=== PATIENT | female | born 1995 | race Caucasian/White ===

== ENCOUNTER → 2016-08-09 | Outpatient (CLI) | payer OTHER ==
[~2016-08-09] MED LIST: EPP3/2 IM; FLUT27.5 NAE; LEVO-371 PO; MONT1TAB3 PO; [UNRECOGNIZED DRUG - REMARK] INJ
--- NOTE | 2016-08-09 17:02 | EEG Procedure Note ---
EEG Procedure Note Date of Service Aug 09, 2016. Start / End Times Start Time: 10:40 AM End Time: 11:01 AM Referring Physician KERI Syed History This is a 21-year-old female with a syncopal event. EEG for further evaluation of possible seizure etiology. Home medications: No reported sedating or antiepileptic medications. Home Medication List Scheduled Epinephrine (Epipen), 0.3 MG IM UD Fluticasone Furoate (Veramyst), 2 SPRY DERRICK DAILY Levocetirizine Dihydrochloride (Xyzal), 1 TAB PO DAILY [serum allergy], 1 DOSE INJ q 2 weeks Miscellaneous Medications Montelukast Sodium (Singulair), 10 MG PO Description This is a 21 electrode EEG with a single channel dedicated to limited EKG. The electrodes were placed in accordance with the International 10-20 system. Heart rate on limited EKG lead noted to be regular At the start of the recording the patient was in an awake state. Background was well organized and composed of symmetric mixed alpha and beta frequencies. There was a symmetric well-formed moderate amplitude 10-11 Hz posterior dominant rhythm that was reactive to eye opening and closure. Hyperventilation with good effort produced no abnormalities. Intermittent photic stimulation at various frequencies produced no abnormalities. There was no state changes or sleep transients. Interpretation This is a normal awake only routine EEG. There was no electrographic seizures or epileptiform discharges. Clinical Correlation A normal EEG does not rule out epilepsy if there is a strong clinical suspicion.
== END | disposition home or self-care (01) ==
LOC: C.NEUR 10:22
PROVIDERS: ATTEND Psychiatry & Neurology Neurology
DX: R55 Syncope and collapse (principal)